=== PATIENT | female | born 1995 | race Caucasian/White ===

== ENCOUNTER → 2021-03-01 15:56 | Outpatient (CLI) | payer OTHER, SELFPAY ==
[2021-03-01 16:03] LABS: Mucous, Urine 0 SEEN /hpf (<or=2+)
[2021-03-01 16:44] LABS: Absolute Lymphocyte Count 1.73 X10^3/uL (0.83-4.51); Absolute Neutrophil Count 3.6 X10^3/uL (2.0-7.7); Basophil# 0.02 X10^3/uL; Basophil% 0.3 % (0-1); Eosinophil# 0.02 X10^3/uL; Eosinophils% 0.3 % (0-5); Hematocrit 38.3 % (37-47); Hemoglobin 12.6 g/dL (12.0-15.0); Lymphocyte # 1.73 X10^3/ul (0.83-4.51); Lymphocyte % 29.1 % (19-41); Mean Corp Hgb Conc 32.9 g/dL (32-36); Mean Corpuscular Hgb 25.9 pg (27.0-32.0); Mean Corpuscular Volume 78.6 fL (81-99); Mean Platelet Vol. 9.9 fl (6.2-12.0); Monocyte# 0.54 X10^3/uL; Monocyte% 9.1 % (0-10); NRBC Flagged by Analyzer 0 % (0-5); Neutrophil # 3.62 X10^3/uL (2.7-7.7); Platelet Count 288 K/mm3 (150-450); RBC Distribution Width CV 12.7 % (11.6-14.6); RBC Distribution Width SD 35.8 fl (35.1-43.9); Red Blood Count 4.87 M/mm3 (4.2-5.4); White Blood Count 5.9 K/mm3 (4.4-11.0)
[2021-03-01 16:48] LABS: Color, Urine Yellow (Yellow); Glucose, Dipstick Normal (Normal); Ketone-Dipstick 5 mg/dl (Negative); Leukocyte Esterase-Dipstick 100 /ul (Negative); Nitrite-Dipstick Negative (Negative); Occult Blood-Urine 250 /ul (Negative); Protein-Dipstick 15 mg/dl (Negative); Specific Gravity, Urine 1.025 (1.002-1.030); Urine Bilirubin Dipstick Negative (Negative); Urine Clarity Clear (Clear); Urine Urobilinogen Normal (Normal)
[2021-03-01 16:52] LABS: Erythrocyte Sedimentation Rate 20 mm/hr (0-30)
[2021-03-01 17:03] LABS: Bacteria 1+ /hpf (None Seen); Red Blood Cells-Urine 0-5 SEEN /hpf (0-5); Squamous Epithelial Cells - UA 0-5 SEEN /hpf (5-10); White Blood Cells 0-5 SEEN /hpf (0-5)
[2021-03-01 18:39] LABS: ALB/GLOB Ratio 1.1 RATIO (0.9-2.4); AST(SGOT) 19 U/L (15-37); Alanine Aminotransfer ALT/SGPT 27 U/L (13-56); Albumin, Serum 3.9 g/dL (3.2-5.0); Alkaline Phosphatase 48 U/L (45-117); Anion Gap 8 (5-15); BUN 15 mg/dL (7-18); BUN/Creat Ratio 15.6 RATIO (10-20); Chloride 106 mmol/L (98-107); Cholesterol 168 mg/dL (200); Creatinine, Serum 0.96 mg/dL (0.55-1.02); EST Glomerular Filtration Rate 75 mL/min (>60); Est Glom Filt Rate - Afr Amer 91 mL/min (>60); Globulin 3.7 g/dL (2.2-4.2); Glucose 83 mg/dL (74-106); High Density Lipoprotein 49 mg/dL; Protein, Total 7.6 g/dL (6.4-8.2); Sodium Level 139 mmol/L (136-145); Thyroid Stim Hormone (TSH) 2.88 uIU/mL (0.358-3.74); Triglycerides 129 mg/dL; Very Low Density Lipoprotein 26 mg/dL (5-40)
[2021-03-03 10:11] LABS: Complement C3 139 mg/dL (82-167)
[2021-03-05 14:18] LABS: Anti-dsDNA Ab 17 IU/mL (0-9)
== END ==
PROVIDERS: PCP Internal Medicine; Referring Provider Internal Medicine; Visit Provider Internal Medicine
DX: M32.9 Systemic lupus erythematosus, unspecified (principal); E28.2 Polycystic ovarian syndrome; N39.0 Urinary tract infection, site not specified; I73.00 Raynaud's syndrome without gangrene; D68.61 Antiphospholipid syndrome
CPT/HCPCS: 36415; 80053; 80061; 81001; 84443; 85025; 85652; 86140; 86160; 86225

== ENCOUNTER → 2021-03-16 | Outpatient (CLI) | payer OTHER, SELFPAY ==
[2021-03-16 15:30] LABS: Mucous, Urine 0 SEEN /hpf (<or=2+)
[2021-03-16 17:49] LABS: Color, Urine Amber (Yellow); Glucose, Dipstick Normal (Normal); Ketone-Dipstick 5 mg/dl (Negative); Leukocyte Esterase-Dipstick 100 /ul (Negative); Nitrite-Dipstick Negative (Negative); Occult Blood-Urine 250 /ul (Negative); Protein-Dipstick 100 mg/dl (Negative); Specific Gravity, Urine 1.025 (1.002-1.030); Urine Bilirubin Dipstick Negative (Negative); Urine Clarity Cloudy (Clear); Urine Urobilinogen 1 mg/dl (Normal)
[2021-03-16 18:19] LABS: Bacteria 1+ /hpf (None Seen); Red Blood Cells-Urine 0-5 SEEN /hpf (0-5); Squamous Epithelial Cells - UA 10-25 SEEN /hpf (5-10); White Blood Cells 5-10 SEEN /hpf (0-5)
== END | disposition home or self-care (01) ==
LOC: LABSPEC 15:27
PROVIDERS: PCP Internal Medicine
DX: N39.0 Urinary tract infection, site not specified (principal); I73.00 Raynaud's syndrome without gangrene; M32.9 Systemic lupus erythematosus, unspecified; E28.2 Polycystic ovarian syndrome; D68.61 Antiphospholipid syndrome
CPT/HCPCS: 81001; 87086; 87088

== ENCOUNTER → 2022-05-30 | Outpatient (CLI) | payer OTHER, SELFPAY ==
[2022-05-30 16:59] LABS: Absolute Lymphocyte Count 1.98 X10^3/uL (0.83-4.51); Basophil# 0.01 X10^3/uL; Basophil% 0.2 % (0-1); Eosinophil# 0.05 X10^3/uL; Eosinophils% 0.8 % (0-5); Hematocrit 39.2 % (37-47); Hemoglobin 12.5 g/dL (12.0-15.0); Lymphocyte # 1.98 X10^3/ul (0.83-4.51); Mean Corp Hgb Conc 31.9 g/dL (32-36); Mean Corpuscular Hgb 25.8 pg (27.0-32.0); Mean Platelet Vol. 10.2 fl (6.2-12.0); Monocyte# 0.54 X10^3/uL; Monocyte% 8.2 % (0-10); NRBC Flagged by Analyzer 0 % (0-5); Neutrophil # 3.99 X10^3/uL (2.7-7.7); Neutrophil % 60.5 % (47-70); Platelet Count 289 K/mm3 (150-450); RBC Distribution Width CV 13.3 % (11.6-14.6); RBC Distribution Width SD 38.9 fl (35.1-43.9); Red Blood Count 4.84 M/mm3 (4.2-5.4); White Blood Count 6.6 K/mm3 (4.4-11.0)
[2022-05-30 18:20] LABS: AST(SGOT) 19 U/L (15-37); Alanine Aminotransfer ALT/SGPT 42 U/L (13-56); Albumin, Serum 3.7 g/dL (3.2-5.0); Alkaline Phosphatase 53 U/L (45-117); Anion Gap 6 (5-15); BUN 15 mg/dL (7-18); BUN/Creat Ratio 14.7 RATIO (10-20); Calcium,Total 9.4 mg/dL (8.5-10.1); Chloride 107 mmol/L (98-107); Cholesterol 181 mg/dL (200); Creatinine, Serum 1.02 mg/dL (0.55-1.02); EST Glomerular Filtration Rate 70 mL/min (>60); Est Glom Filt Rate - Afr Amer 85 mL/min (>60); Globulin 3.8 g/dL (2.2-4.2); Glucose 97 mg/dL (74-106); High Density Lipoprotein 47 mg/dL; Potassium 4.3 mmol/L (3.5-5.1); Protein, Total 7.5 g/dL (6.4-8.2); Sodium Level 141 mmol/L (136-145); Thyroid Stim Hormone (TSH) 3.24 uIU/mL (0.358-3.74); Triglycerides 178 mg/dL; Very Low Density Lipoprotein 36 mg/dL (5-40)
== END | disposition home or self-care (01) ==
LOC: BIMLAB 16:16
PROVIDERS: PCP Internal Medicine; Referring Provider Internal Medicine; Visit Provider Internal Medicine
DX: I10 Essential (primary) hypertension (principal)
CPT/HCPCS: 36415; 80053; 80061; 84443; 85025

== ENCOUNTER → 2023-06-11 | Outpatient (CLI) | payer OTHER, SELFPAY ==
--- OUTSIDE RECORDS SUMMARY | 2023-06-11 16:05 | XMS RPT_ITS | CCD ---
Author Name Unknown Address [address] [place] [address] Organization [facility] Care Team Providers Care Storage Consultant Name Role Phone Ania ESPINOZASaumya JUSTIN Primary Care Provider Medications Completed/Discontinued Medications Medication Drug Class(es) Dates Sig (Normalized) Sig (Original) aspirin 81 mg delayed release oral tablet (1 source) Platelet Aggregation Inhibitor, Nonsteroidal Anti-inflammatory Drug Start: 12-28-2018 take 1 tablet by mouth once daily aspirin, enteric coated (ASPIRIN, ENTERIC COATED) 81 mg EC tablet Take 81 mg by mouth once daily. 3 12/28/2018 Active Problems Active Problems Problem Classification Problem Date Documented Da te Episodic/Chronic Anxiety disorders (1 source) Anxiety; Translations: [Anxiety disorder, unspecified] 02-01-2019 Chronic Menstrual disorders (1 source) Irregular periods; Translations: [Irregular menstruation, unspecified] Onset: 06-20-2015 06-20-2015 Chronic Mood disorders (1 source) Depressive disorder; Translations: [Depression] 02-01-2019 Chronic Nutritional deficiencies (1 source) Vitamin D deficiency; Translations: [Vitamin D deficiency, unspecified] Onset: 06-20-2015 06-20-2015 Chronic Other endocrine disorders (1 source) Increased androgen level; Translations: [Androgen excess] Onset: 06-20-2015 06-20-2015 Chronic Other endocrine disorders (1 source) Polycystic ovary syndrome; Translations: [Polycystic ovarian syndrome] 02-01-2019 Chronic Systemic lupus erythematosus and connective tissue disorders (1 source) Lupus erythematosus; Translations: [Systemic lupus erythematosus, unspecified] 02-01-2019 Chronic Thyroid disorders (3 sources) Acquired hypothyroidism; Translations: [Hypothyroidism, unspecified] Onset: 06-20-2015 Chronic Past or Other Problems Problem Classification Problem Date Documented Da te Episodic/Chronic Other upper respiratory infections (1 source) Acute upper respiratory infection; Translations: [Acute upper respiratory infection, unspecified] Onset: 07-20-2019 07-20-2019 Episodic Results Test Name Value Interpretation Reference Range Facil ity Encounters Encounter Date Encounter Type Care Provider Facility Start: 11-06-2021 Refill Saumya Jorge APRN.SONNY Work Phone: [facility] Plan of Treatment Date Care Activity Detail Author Start: 02-04-2024 Urine microalbumin profile DTA P,TDAP,TD (5 - Td or Tdap) [facility] Start: 01-24-2022 Influenza vaccination INFLUENZA (Sea son Ended) [facility] Start: 06-05-2021 ANNUAL PCP TEAM MEDICAL LABORATORY ASSISTANT ADDY DISEASE VISIT ANNUAL PCP TEAM CHRONIC DISEASE VISIT [facility] Start: 08-23-2020 COVID-19 VACCINE (3 - Pfizer risk series) COVID-19 VACCINE (3 - Pfizer risk series) [facility] Start: 12-25-2019 PAP TESTING PAP TESTING [facility] Start: 2014 HEPATITIS C SCREENING HEPATITIS C SC REENING [facility] Start: 2014 HIV SCREENING HIV SCREENING [facility] Start: 2010 PEDS TO ADULT TRANSI TION ANNUAL ASSESSMENT PEDS TO ADULT TRANSITION ANNUAL ASSESSMENT [facility] Start: 2008 PEDS TO ADULT TRANSI TION INITIAL DISCUSSION PEDS TO ADULT TRANSITION INITIAL DISCUSSION [facility] Start: 10-22-2007 HPV VACCINE (1 - 2-d ose series) HPV VACCINE (1 - 2-dose series) [facility] Start: 2006 MENINGOCOCCAL B: Con 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 based on risk (1 of 2 - Risk Bexsero 2-dose series) MENINGOCOCCAL B: Consider based on risk (1 of 2 - Risk Bexsero 2-dose series) [facility] Start: 01-12-2002 PNEUMOCOCCAL (1 - PP SV23 or PCV20) PNEUMOCOCCAL (1 - PPSV23 or PCV20) [facility] Immunizations Immunization Date Immunization Notes Care Provider Fa alka 07-26-2020 COVID-19 vaccine, ag e 12+ yr ([employer]-BIONTECH - PURPLE TOP) Saumya Jorge APRN.CNP Work Phone: [facility] 07-05-2020 COVID-19 vaccine, ag e 12+ yr ([employer]-BIONTECH - [facility]) Saumya Morgana [employer].STUDIO DESIGNER Work Phone: [facility] 02-27-2020 Influenza, injectabl e, Madin Martha Canine Kidney, preservative free, quadrivalent Saumya Bologna [employer].STUDIO DESIGNER Work Phone: [facility] 04-26-2019 influenza, injectabl e, quadrivalent, preservative free Saumya Bologna [employer].STUDIO DESIGNER Work Phone: [facility] 03-19-2015 influenza, seasonal, injectable Saumya Bolcarla [employer].STUDIO DESIGNER Work Phone: [facility] 02-03-2014 meningococcal oligosaccharide (groups A, C, Y and W-135) diphtheria toxoid conjugate vaccine (MCV4O) Saumya Morgana [employer].STUDIO DESIGNER Work Phone: [facility] 02-03-2014 tetanus toxoid, redu ally diphtheria toxoid, and acellular pertussis vaccine, adsorbed Saumya Bologna [employer].STUDIO DESIGNER Work Phone: [facility] 12-04-2010 hepatitis A vaccine, unspecified formulation Saumya Morgana [employer].STUDIO DESIGNER Work Phone: [facility] 05-23-2010 hepatitis A vaccine, unspecified formulation Saumya Bologna [employer].STUDIO DESIGNER Work Phone: [facility] 05-23-2010 meningococcal oligosaccharide (groups A, C, Y and W-135) diphtheria toxoid conjugate vaccine (MCV4O) Saumya Moraa [employer].STUDIO DESIGNER Work Phone: [facility] 11-23-2007 tetanus toxoid, redu ally diphtheria toxoid, and acellular pertussis vaccine, adsorbed Saumya Bologna [employer].STUDIO DESIGNER Work Phone: [facility] 11-23-2007 varicella virus vaccine Danyelle katt Jorge [employer].STUDIO DESIGNER Work Phone: [facility] 12-15-2001 diphtheria, tetanus toxoids and acellular pertussis vaccine Saumya Bolcarla [employer].STUDIO DESIGNER Work Phone: [facility] 12-15-2001 measles, mumps and r ubella virus vaccine Saumya Bologna [employer].STUDIO DESIGNER Work Phone: [facility] 12-15-2001 poliovirus vaccine, inactivated Saumya Bologna [employer].STUDIO DESIGNER Work Phone: [facility] 01-12-2001 pneumococcal conjuga te vaccine, 13 valent Saumya Bologna [employer].STUDIO DESIGNER Work Phone: [facility] 04-14-1998 diphtheria, tetanus toxoids and acellular pertussis vaccine Saumya Bologna [employer].STUDIO DESIGNER Work Phone: [facility] 04-14-1998 poliovirus vaccine, inactivated Saumya Bologna [employer].STUDIO DESIGNER Work Phone: [facility] 01-13-1998 haemophilus influenz ae type b vaccine, HbOC conjugate Saumya Bologna [employer].STUDIO DESIGNER Work Phone: [facility] 01-13-1998 measles, mumps and r ubella virus vaccine Saumya Bologna [employer].STUDIO DESIGNER Work Phone: [facility] 10-27-1997 varicella virus vaccine Danyelle a Bologna [employer].STUDIO DESIGNER Work Phone: [facility] 07-21-1997 hepatitis B vaccine, pediatric or pediatric/adolescent dosage Saumya Bologna [employer].STUDIO DESIGNER Work Phone: [facility] 05-12-1997 diphtheria, tetanus toxoids and acellular pertussis vaccine Saumya Bologna [employer].STUDIO DESIGNER Work Phone: [facility] 05-12-1997 haemophilus influenz ae type b vaccine, HbOC conjugate Saumya Bologna [employer].STUDIO DESIGNER Work Phone: [facility] 03-21-1997 diphtheria, tetanus toxoids and acellular pertussis vaccine Saumya Bologna [employer].STUDIO DESIGNER Work Phone: [facility] 03-21-1997 haemophilus influenz ae type b vaccine, HbOC conjugate Saumya Bologna [employer].STUDIO DESIGNER Work Phone: [facility] 03-21-1997 poliovirus vaccine, inactivated Saumya Bologna [employer].STUDIO DESIGNER Work Phone: [facility] 01-17-1997 diphtheria, tetanus toxoids and acellular pertussis vaccine Saumya Jorge [employer].STUDIO DESIGNER Work Phone: [facility] 01-17-1997 haemophilus influenz ae type b vaccine, HbOC conjugate Saumya Jorge [employer].STUDIO DESIGNER Work Phone: [facility] 01-17-1997 poliovirus vaccine, inactivated Saumya Jorge [employer].STUDIO DESIGNER Work Phone: [facility] 1996 hepatitis B vaccine, pediatric or pediatric/adolescent dosage Saumya Jorge [employer].STUDIO DESIGNER Work Phone: [facility] 1996 hepatitis B vaccine, pediatric or pediatric/adolescent dosage Saumya Jorge [employer].STUDIO DESIGNER Work Phone: [facility] Payers Date Payer Category Payer Unknown MMO MMO [employer] [id number] 2020-Present [phone] [address] [place] [address] PPO [id number] Social History Date Type Detail Facility Tobacco smoking stat [facility] Never smoked tobacco [facility] Start: 06-05-2020 Alcohol intake Current drinke r of alcohol (finding) [facility] Start: 02-01-2019 History SDOH Alcohol Comment rarely [facility] Start: 1995 Sex Assigned At Not on file [facility] Note 11-07-2021 Telephone Encounter - Kassie Colon - 11/07/2021 5:41 PM EDTTelephone Encounter - Saumya Jorge APRN.CNP - 11/07/2021 4:44 PM EDTTelephone Encounter - Olga Jara MA - 11/06/2021 3:28 PM EDT Note Date & Type Note Facility 11-07-2021 Miscellaneous Notes Called pt to notify her of Saumya's previous message. Pt states she sees a new PCP but thought that she had to have Saumya keep refilling script since Saumya is the one who originally ordered it. Advised pt that Saumya could not continue to prescribe if she is not seen by Saumya. Pt states she will now call her current PCP for further refills. Patient needs visit and labs. She has not been seen in the past year. Refills sent but will need seen for further refills. Patient calls requesting refill: Pending Prescriptions Disp Refills LEVOTHYROXINE 75 MCG TABLET 30 tablet 1 Sig: Take 1 tablet by mouth once daily. BRENDA: No Date of last visit:06/05/2020 Phone #: [phone] (home) [phone] (cell) The patients preferred pharmacy has been captured for this encounter? Yes Olga Jara MA documented in this encounter [facility] Evaluation note Note Date & Type Note Facility documented in this encounter [facility] Summary Purpose Family History No Family History Records FoundNo Family History Records FoundNo Family History Records FoundNo Family History Records FoundNo Family History Records Found Advance Directives No Advanced Directives Records FoundNo Advanced Directives Records FoundNo Advanced Directives Records FoundNo Advanced Directives Records FoundNo Advanced Directives Records Found Additional Source Comments INFORMATION SOURCE (unrecogn ized section and content) DATE CREATED AUTHOR AUTHOR'S ORGANIZ ATION 08/25/2019 [facility] DATE CREATED AUTHOR AUTHOR'S ORGANIZ ATION 09/20/2020 [facility] DATE CREATED AUTHOR AUTHOR'S ORGANIZ ATION 06/19/2021 [facility] DATE CREATED AUTHOR AUTHOR'S ORGANIZ ATION 09/28/2021 [facility] Source Comments (unrecognize d section and content) In the event this informatio n is protected by the Federal Confidentiality of Alcohol and Drug Abuse Patient Records regulations: The Federal rules restrict any use of the information to criminally investigate or prosecute any alcohol or drug abuse patient.[facility] Reason for Visit (unrecogniz ed section and content) Care Teams (unrecognized sec tion and content) FOR RECORDS PERTAINING TO PATIENTS WHO ARE OR HAVE BEEN ENROLLED IN A CHEMICAL DEPENDENCY/SUBSTANCEABUSE PROGRAM, SOME INFORMATION MAY BE OMITTED. This clinical summary was aggregated from multiple sources. Caution should be exercised in using it in the provision of clinical care. This summary normalizes information from multiple sources, and as a consequence, information in this document may materially change the coding, format and clinical context of patient data. In addition, data may be omitted in some cases. CLINICAL DECISIONS SHOULD BE BASED ON THE PRIMARY CLINICAL RECORDS. [facility]. provides no warranty or guarantee of the accuracy or completeness of information in this document.
[2023-06-11 16:50] LABS: Absolute Lymphocyte Count 2.15 X10^3/uL (0.83-4.51); Absolute Neutrophil Count 3.6 X10^3/uL (2.0-7.7); Basophil# 0.03 X10^3/uL; Basophil% 0.5 % (0-1); Eosinophils% 1.6 % (0-5); Hematocrit 40.5 % (37-47); Hemoglobin 13.2 g/dL (12.0-15.0); Lymphocyte # 2.15 X10^3/ul (0.83-4.51); Lymphocyte % 33.9 % (19-41); Mean Corp Hgb Conc 32.6 g/dL (32-36); Mean Corpuscular Hgb 26.1 pg (27.0-32.0); Mean Corpuscular Volume 80.2 fL (81-99); Mean Platelet Vol. 10.6 fl (6.2-12.0); Monocyte# 0.48 X10^3/uL; Monocyte% 7.6 % (0-10); NRBC Flagged by Analyzer 0 % (0-5); Neutrophil # 3.57 X10^3/uL (2.7-7.7); Neutrophil % 56.2 % (47-70); Platelet Count 320 K/mm3 (150-450); RBC Distribution Width CV 13.7 % (11.6-14.6); RBC Distribution Width SD 39.8 fl (35.1-43.9); Red Blood Count 5.05 M/mm3 (4.2-5.4); White Blood Count 6.3 K/mm3 (4.4-11.0)
[2023-06-11 16:54] LABS: AST(SGOT) 24 U/L (15-37); Alanine Aminotransfer ALT/SGPT 37 U/L (13-56); Albumin, Serum 3.5 g/dL (3.2-5.0); Alkaline Phosphatase 53 U/L (45-117); Anion Gap 7 (5-15); BUN 15 mg/dL (7-18); BUN/Creat Ratio 16.1 RATIO (10-20); Calcium,Total 8.7 mg/dL (8.5-10.1); Chloride 111 mmol/L (98-107); Cholesterol 165 mg/dL (200); Creatinine, Serum 0.93 mg/dL (0.55-1.02); EST Glomerular Filtration Rate 77 mL/min (>60); Est Glom Filt Rate - Afr Amer 93 mL/min (>60); Globulin 3.6 g/dL (2.2-4.2); Glucose 102 mg/dL (74-106); High Density Lipoprotein 41 mg/dL; Protein, Total 7.1 g/dL (6.4-8.2); Sodium Level 140 mmol/L (136-145); Thyroid Stim Hormone (TSH) 3.55 uIU/mL (0.358-3.74); Triglycerides 195 mg/dL; Very Low Density Lipoprotein 39 mg/dL (5-40)
== END | disposition home or self-care (01) ==
LOC: BIMLAB 15:44
PROVIDERS: PCP Internal Medicine; Visit Provider Internal Medicine
DX: I10 Essential (primary) hypertension (principal); E03.9 Hypothyroidism, unspecified
CPT/HCPCS: 36415; 80053; 80061; 84443; 85025